=== PATIENT | male | born 1960 | race Caucasian/White ===

== ENCOUNTER 2020-09-12 13:24 | Inpatient (IN) | payer SELFPAY ==
[~2020-09-12] VITALS: Ht 175.3 cm; Wt 78.0 kg
--- NOTE | 2020-09-12 13:38 | NUR ---
pt now requesting something to drink. pt also mentioned that has allergy to keflex.
[2020-09-12] MEDS ORDERED: IV NORMAL SALINE 1000 ML BAG IV ONE (14:00)
[2020-09-12 14:11] LABS: HEMATOCRIT 40.1 % (36.7-47.1); MEAN CORPUSCULAR HEMOGLOBIN 30.5 uug (23.8-33.4); MEAN CORPUSCULAR VOLUME 92.2 fL (73.0-96.2); PLATELET COUNT (AUTO) 354 K/uL (152-348)
[2020-09-12 14:25] LABS: ETHANOL < 3 MG/DL (0-0)
[2020-09-12 14:36] LABS: CARBON DIOXIDE 27 mmol/L (21-32); CHLORIDE 105 mmol/L (98-107); CREATININE 0.8 mg/dL (0.6-1.3); GLUCOSE 140 mg/dL (74-106); POTASSIUM 3.9 mmol/L (3.5-5.1); UREA NITROGEN, BLOOD 18 mg/dL (7-18)
[2020-09-12 14:42] LABS: *BILIRUBIN,URIN 1+ (NEGATIVE); *BLOOD, URINE NEGATIVE (NEGATIVE); *CLARITY,URINE CLEAR (CLEAR); *COLOR,URINE DARK YELLOW (YELLOW); *KETONES,URINE NEGATIVE (NEGATIVE); LEUKOCYTE ESTERASE ,URINE NEGATIVE (NEGATIVE); NITRITE, URINE NEGATIVE (NEGATIVE); UGLUCOSE NEGATIVE (NEGATIVE)
--- NOTE | 2020-09-12 14:42 | NUR ---
PT IS IN ROOM #2B. DR BELLAMY EVALUATED THE PT.
[2020-09-12 14:46] LABS: *AMPHETAMINE, URINE NEGATIVE (NEGATIVE); *CANNABINOID, URINE NEGATIVE (NEGATIVE); *COCCAINE, URINE NEGATIVE (NEGATIVE); *OPIATE, URINE NEGATIVE (NEGATIVE); *PHENCYCLIDINE SCREEN,URINE NEGATIVE (NEGATIVE)
[2020-09-12 14:53] LABS: ACETAMINOPHEN < 2.0 ug/mL (10-30); ALANINE AMINOTRANSFERASE 20 U/L (16-63); ALKALINE PHOSPHATASE 91 U/L (50-136); ASPARTATE AMINOTRANSFERASE 16 U/L (15-37); BILIRUBIN,DIRECT 0.3 mg/dL (0.0-0.2); BILIRUBIN,TOTAL 1.2 mg/dL (0.2-1.0); TOTAL PROTEIN, SERUM 7.9 g/dL (6.4-8.2)
[2020-09-12 14:57] LABS: BACTERIA,URINE NONE SEEN /HPF (NONE SEEN); MUCUS,URINE MANY /LPF (0-FEW); RBC,URINE 0-3 /HPF (0-3); SQUAMOUS EPITHELIAL CELL,UR FEW /HPF (NONE SEEN); URINE AMORPHOUS URATE MODERATE /HPF; WBC,URINE 0-3 /HPF (0-3)
[2020-09-12 15:10] LABS: THYROID STIMULATING HORMONE 0.991 mIU/mL (0.358-3.740)
[2020-09-12] MEDS ORDERED: ONDANSETRON 4 MG/2 ML VIAL ONE ×2 (16:09→20:56)
[2020-09-12] MEDS ORDERED: HYDROMORPHONE 1 MG/1 ML DISP.SYRIN ONE (16:09)
[2020-09-12] MEDS ORDERED: ONDANSETRON 4 MG/2 ML VIAL IV ONE ×2 (17:00→20:45)
[2020-09-12] MEDS ORDERED: HYDROMORPHONE 1 MG/1 ML DISP.SYRIN IV ONE ×2 (17:00→20:45)
--- NOTE | 2020-09-12 19:15 | NUR ---
Report given by MELISSA Sheets. Pt. A&Ox1, vss. Will continue to monitor.
--- NOTE | 2020-09-12 20:15 | NUR ---
Pt. resting in bed watching television. Vss. Will continue to monitor.
[2020-09-12] MEDS ORDERED: HYDROMORPHONE 2 MG/1 ML DISP.SYRIN ONE (20:56)
--- NOTE | 2020-09-12 21:54 | NUR ---
Report given to MELISSA Boston.
[2020-09-12 22:00] VITALS: BP 148/69
[2020-09-12] MEDS ORDERED: ZOLPIDEM 5 MG TABLET PO PRN (22:15)
[2020-09-12] MEDS ORDERED: Z GUARD REMEDY PASTE 57 GM TUBE TOP PRN (22:15)
[2020-09-12] MEDS ORDERED: ACETAMINOPHEN 325 MG TABLET PO PRN (22:15)
[2020-09-12] MEDS ORDERED: ONDANSETRON 4 MG/2 ML VIAL IV PRN (22:15)
[2020-09-12] MEDS ORDERED: MAGNESIUM HYDROXIDE 30 ML LIQUID UDC PO PRN (22:15)
[2020-09-12] MEDS: IV 1/2NS 1000 ML 1,000 ML IV PRN (23:59)
[2020-09-13 04:18] VITALS: BP 118/67
--- NOTE | 2020-09-13 05:43 | NUR ---
received pt on the floor by lexi. Admitting dx right femur fx. Axox1, speech is not clear. VSS. No C/o pain,, asleep in bed. LFA IV intact and patent, started on .45NS @100ml /hr. belongings list completed. Physical assessment completed picture taken of ankle and back of the neck, some redness notices and placed in chart. Safety precautions maintained. Call light within reach. Will continue to monitor.
[2020-09-13] MEDS: PANTOPRAZOLE SODIUM 40 MG TABLET.DR PO SCH (06:44)
--- NOTE | 2020-09-13 07:30 | NUR ---
PATIENT REMAINS VERY CONFUSED AND UNCOOPERATIVE WITH CARE CLOSELY MONITORED FOR PAIN
[2020-09-13 07:47] LABS: MEAN CORPUSCULAR VOLUME 92.9 fL (73.0-96.2); PLATELET COUNT (AUTO) 279 K/uL (152-348)
[2020-09-13 08:03] LABS: CREATININE 0.7 mg/dL (0.6-1.3); MAGNESIUM 2.1 mg/dL (1.8-2.4); PHOSPHOROUS 2.2 mg/dL (2.5-4.9); POTASSIUM 4.2 mmol/L (3.5-5.1)
[2020-09-13 08:52] LABS: HEMATOCRIT 33.4 % (36.7-47.1)
--- NOTE | 2020-09-13 10:17 | NUR ---
seen by hospitalist edson advised to call for psych consult for paranoia, uncooperative
--- NOTE | 2020-09-13 10:20 | NUR ---
dr koo notified for psych eval/consult message left on answering
[2020-09-13 11:55] VITALS: BP 125/71
[2020-09-13] MEDS: MORPHINE SULFATE 2 MG/1 ML DISP.SYRIN IV PRN (13:05)
[2020-09-13] MEDS: IV 1/2NS 1000 ML 1,000 ML IV PRN ×2 (13:08→22:52)
--- NOTE | 2020-09-13 15:00 | NUR ---
SEEN BY DR PADILLA FOR ORTHO CONSULT SEE NOTES. DR PADILLA ALSO MADE AWARE OF PATIENT BEING CONFUSED AND NO NEXT OF KIN TO SIGN CONSENT.
[2020-09-13] MEDS ORDERED: NEUTRA PHOS PACKET PO ONE (15:30)
[2020-09-13 21:23] VITALS: BP 129/64
--- NOTE | 2020-09-13 22:59 | NUR ---
NOTED PATIENT TRYING TO REMOVED THE IVF,ADVISED PATIENT IVF IS NEEDED NOT TO REMOVED IT PATIENT IS CONFUSED . WRAPPED IVF SITE WITH KERLIX AND SECURE WITH TAPE .
--- NOTE | 2020-09-14 02:42 | NUR ---
PATIENT REMOVED IV -HEPLOCK ,PLACED A NE H/L PLACED NO .20 ON THE RIGHT FOREARM .
[2020-09-14] MEDS: MORPHINE SULFATE 2 MG/1 ML DISP.SYRIN IV PRN ×3 (03:02→20:08)
--- NOTE | 2020-09-14 03:02 | NUR ---
GIVEN PAIN MEDICATION VERBALIZED PAIN UNABLE TO DESCRIBED PAIN 5/10.
[2020-09-14] MEDS: PANTOPRAZOLE SODIUM 40 MG TABLET.DR PO SCH (06:18)
[2020-09-14 07:36] LABS: HEMATOCRIT 34.5 % (36.7-47.1); PLATELET COUNT (AUTO) 312 K/uL (152-348)
[2020-09-14] MEDS: IV 1/2NS 1000 ML 1,000 ML IV PRN ×2 (07:45→20:07)
--- NOTE | 2020-09-14 08:00 | NUR ---
RESTING IN BED ANSWERS SIMPLE QUESTION APPROPRIATELY. SITTER PROVIDED FOR SAFETY.
[2020-09-14 08:05] LABS: CREATININE 0.7 mg/dL (0.6-1.3); MAGNESIUM 2.2 mg/dL (1.8-2.4)
[2020-09-14 11:56] VITALS: BP 135/79
--- NOTE | 2020-09-14 14:10 | NUR ---
CONTINUE WITH PAIN MANAGEMENT FOR PRE OP MANAGEMENT. PATIENT WILL UNDERGO IM NAILING RIGHT FEMUR IN AM AT [address] PADILLA, DR PADILLA WILL SIGN SURGICAL MILLI CONSENT
[2020-09-14 16:00] VITALS: BP 128/68
--- NOTE | 2020-09-14 19:30 | NUR ---
Received pt in bed, resting, verbally responsive but garbled. No signs of distress noted. IVF infusing well. Plan of care discussed with the pt. Call light within reach. Sitter at bedside for safety.
[2020-09-14 20:00] VITALS: BP 142/72
[2020-09-15 04:00] VITALS: BP 120/60
[2020-09-15 06:27] LABS: MEAN CORPUSCULAR HEMOGLOBIN 30.3 uug (23.8-33.4); MEAN CORPUSCULAR VOLUME 91.4 fL (73.0-96.2); PLATELET COUNT (AUTO) 342 K/uL (152-348)
[2020-09-15] MEDS: PANTOPRAZOLE SODIUM 40 MG TABLET.DR PO SCH (06:45)
[2020-09-15 06:52] LABS: CARBON DIOXIDE 29 mmol/L (21-32); CHLORIDE 101 mmol/L (98-107); CREATININE 0.6 mg/dL (0.6-1.3); GLUCOSE 104 mg/dL (74-106); MAGNESIUM 2.1 mg/dL (1.8-2.4); POTASSIUM 4.2 mmol/L (3.5-5.1); UREA NITROGEN, BLOOD 12 mg/dL (7-18)
--- NOTE | 2020-09-15 07:08 | NUR ---
No significant change in condition noted through the night. Pain medications administered as needed. IV access intact and patent. Pt on NPO status since midnight. will be picked up for surgery at 0725 per surgery staff. Will endorse to day shift nurse.
[2020-09-15] MEDS ORDERED: BUPIVACAINE 0.25% 30 ML VIAL ONE (07:28)
[2020-09-15] MEDS ORDERED: POLYMYXIN B SULFATE 500,000 UNITS VIAL ONE (07:28)
[2020-09-15] MEDS ORDERED: VANCOMYCIN 1000 MG VIAL ONE (07:28)
--- NOTE | 2020-09-15 07:30 | NUR ---
Received aware and responsive. No respiratory distress. No s/sx of pain. Patient is comfortable. Will continue to monitor.
--- NOTE | 2020-09-15 07:41 | NUR ---
Picked up by 2 surgery staff for scheduled IM nailing by Dr. Alexander.
[2020-09-15] MEDS ORDERED: CLINDAMYCIN PHOSPHATE 600 MG/4 ML VIAL ONE (08:02)
[2020-09-15] MEDS ORDERED: HYDROMORPHONE 2 MG/1 ML DISP.SYRIN ONE (08:02)
[2020-09-15] MEDS ORDERED: HYDROMORPHONE 1 MG/1 ML DISP.SYRIN ONE (10:17)
[2020-09-15 11:00] VITALS: BP 134/82
[2020-09-15] MEDS ORDERED: IV D5W-0.45% NS +20 KCL 1,000 ML IV ONE (11:04)
--- NOTE | 2020-09-15 11:19 | NUR ---
Reports received from MELISSA Krishnamurthy and MELISSA Parikh.
--- NOTE | 2020-09-15 11:19 | NUR ---
Patient back from surgery via gurney in no distress. Alert and oriented x2. On O2 lpm via nc tolerated. No sob noted. Iv hydration ongoing. Surgery site with chava and dressing intact, no bleeding but swelling noted, ice pack on. No bleeding noted. Patient is kept comfortable.
--- NOTE | 2020-09-15 11:30 | NUR ---
Unable to obtain reported meds d/t patient's mental status. Pharmacy aware.
[2020-09-15 16:00] VITALS: BP 122/70
--- NOTE | 2020-09-15 16:10 | NUR ---
Patient tolerating room air spo2 95%. No respiratory distress noted.
[2020-09-15] MEDS: CLINDAMYCIN PHOSPHATE IV 600 MG in IV DEXTROSE 5% 100 ML IV SCH (16:21)
--- NOTE | 2020-09-15 18:54 | NUR ---
Patient is alert and responsive watching tv. In no acute distress. On iv atb no adverse reaction noted. Iv hydration ongoing. Patient has episodes of pulling and biting on iv site. Patient is reoriented. Sitter at bedside. S/p IM nailing. Dressings remain dry and intact. No bleeding noted. Patient needs attended. Safety and fall precautions maintained.
[2020-09-15 20:00] VITALS: BP 133/62
[2020-09-15] MEDS: MORPHINE SULFATE 4 MG/1 ML DISP.SYRIN IV PRN (20:27)
--- NOTE | 2020-09-15 20:30 | NUR ---
RECEIVED PATIENT AWAKE IN BED WITH SITTER AT BEDSIDE. PATIENT IS ALERT TO SELF ONLY, VERY CONFUSED AND DISORIENTED. NEEDS FREQUENT REDIRECTION. DRESSING NOTED TO RIGHT HIP/THIGH, CLEAN, DRY AND INTACT. WHEN ASKED IF IN PAIN, PATIENT STATED, "YES." PATIENT GIVEN MORPHINE 2MG IV PRN PER RN. VS WNL. IVF INFUSING WELL TO RIGHT FA. BED ALARM ON. CALL LIGHT IN REACH. ALL NEEDS ATTENDED. WILL CONTINUE TO MONITOR AND ASSESS .
[2020-09-15] MEDS ORDERED: HALOPERIDOL LACTATE 5 MG/1 ML VIAL IM ONE (21:00)
--- NOTE | 2020-09-15 21:15 | NUR ---
PATIENT AWAKE IN BED, TRYING TO PULL OUT IV AND REMOVE DRESSINGS. WHEN APPROACHED, PATIENT BECOMES AGITATED AND AGGRESSIVE WITH SITTER/STAFF. CALLED OUT TO DR. MORGAN FOR FURTHER ORDERS AND RECEIVED ONE TIME ORDER FOR HALDOL 10MG IM. SITTER AT BEDSIDE. VSS. BED ALARM ON. ALL NEEDS ATTENDED.
[2020-09-15] MEDS: POTASSIUM CHLORIDE 20 MEQ in IV D5 1/2 NS 1000 ML 1,000 ML IV PRN (21:38)
--- NOTE | 2020-09-15 23:00 | NUR ---
DR. GARCIA AT BEDSIDE TO SEE PATIENT. INFORMED MD THAT RECEIVED IM HALDOL FOR SEVERE AGITATION. MD STATED TO START HALDOL SCHEDULED PO IN AM. ALL NEEDS ATTENDED. WILL CONTINUE TO MONITOR AND ASSESS.
[2020-09-15] MEDS: HALOPERIDOL 5 MG TABLET PO SCH (23:30)
[2020-09-15] MEDS ORDERED: HALOPERIDOL LACTATE 5 MG/1 ML VIAL IM PRN (23:30)
[2020-09-16] MEDS: CLINDAMYCIN PHOSPHATE IV 600 MG in IV DEXTROSE 5% 100 ML IV SCH (01:18)
[2020-09-16 04:00] VITALS: BP 130/66
--- NOTE | 2020-09-16 05:44 | NUR ---
PATIENT AWAKE IN BED. RESTLESS. ALERT TO SELF. CONFUSED. SITTER AT BEDSIDE. CALL LIGHT IN REACH. ALL NEEDS ATTENDED. WILL CONTINUE TO MONITOR AND ASSESS.
[2020-09-16] MEDS: PANTOPRAZOLE SODIUM 40 MG TABLET.DR PO SCH (06:06)
[2020-09-16 06:47] LABS: HEMATOCRIT 31.5 % (36.7-47.1); MEAN CORPUSCULAR HEMOGLOBIN 30.9 uug (23.8-33.4); MEAN CORPUSCULAR VOLUME 92.1 fL (73.0-96.2); PLATELET COUNT (AUTO) 364 K/uL (152-348)
[2020-09-16 07:15] LABS: CREATININE 0.7 mg/dL (0.6-1.3); POTASSIUM 4.5 mmol/L (3.5-5.1)
--- NOTE | 2020-09-16 07:30 | NUR ---
Received patient awake and responsive, alert to self only, very confused and disoriented, mumbling to himself. Reoriented and redirection given but patient not responsive and continues to mumble. No respiratory distress. No s/sx of pain. Iv on rfa intact and connected to hydration tolerated. Dressing on right thigh and hip intact, dry and intact. Sitter at bedside. Bed is low and locked. Safety and fall measures maintained. Kept comfortable.
[2020-09-16] MEDS: HALOPERIDOL 5 MG TABLET PO SCH ×3 (08:28→17:08)
[2020-09-16] MEDS: BENZTROPINE MESYLATE 1 MG TABLET PO SCH ×3 (08:28→17:08)
[2020-09-16] MEDS: HYDROCODONE/APAP 10-325 MG TABLET PO PRN ×2 (08:34→17:26)
[2020-09-16] MEDS: POTASSIUM CHLORIDE 20 MEQ in IV D5 1/2 NS 1000 ML 1,000 ML IV PRN (10:57)
[2020-09-16 12:00] VITALS: BP 108/63
[2020-09-16 16:12] VITALS: BP 100/56
--- NOTE | 2020-09-16 19:00 | NUR ---
PATIENT ASLEEP BUT AROUSABLE, NO S/S OF PAIN AT THIS TIME, NO BEHAVIORAL PROBLEM NOTED, CONT 1;1 SITTER FOR SAFETY, CALL LIGHT WITHIN REACH.
--- NOTE | 2020-09-16 19:08 | NUR ---
Patient aware and responsive still very confused and disoriented garbles to himself. Frequent redirection and reorientation done. Sitter remains at bedside. Due meds given and tolerated. No acute distress. Iv hydration ongoing and tolerated. Dressing on right thigh and hip intact and dry. Bed is low and locked. Needs attended. Safety and fall measures maintained. Endorsed to next shift.
[2020-09-16 19:50] VITALS: BP 108/57
--- NOTE | 2020-09-16 22:30 | NUR ---
PATIENT ALERT AWAKE COMPLAIN OF R LEG, 9/10, AND NOTED WITH RESTLESSNESS. PATIENT GIVEN MORPHINE IV FOR PAIN AND COMFORT. PATIENT CONTINUE ON 1;1 SITTER FOR SAFETY, R HIP R THIGH DRESSING INTACT, CONT TO MONITOR.
[2020-09-16] MEDS: MORPHINE SULFATE 4 MG/1 ML DISP.SYRIN IV PRN (22:31)
[2020-09-17] MEDS: POTASSIUM CHLORIDE 20 MEQ in IV D5 1/2 NS 1000 ML 1,000 ML IV PRN ×2 (00:08→13:50)
[2020-09-17 05:42] VITALS: BP 120/64
--- NOTE | 2020-09-17 06:18 | NUR ---
PATIENT ASLEEP BUT EASILY AROUSABLE, NO COMPLAIN OF PAIN AT THIS TIME, PATIENT COOPERATIVE WITH CARE AT THIS TIME, NO BEHAVIORAL PROBLEM NOTED, CONT TO MONITOR, CONT 1;1 SITTER.
[2020-09-17 06:20] LABS: HEMATOCRIT 30.3 % (36.7-47.1); MEAN CORPUSCULAR HEMOGLOBIN 30.5 uug (23.8-33.4); MEAN CORPUSCULAR VOLUME 91.7 fL (73.0-96.2); PLATELET COUNT (AUTO) 368 K/uL (152-348)
[2020-09-17] MEDS: PANTOPRAZOLE SODIUM 40 MG TABLET.DR PO SCH (06:30)
[2020-09-17 06:34] LABS: CREATININE 0.7 mg/dL (0.6-1.3); POTASSIUM 4.4 mmol/L (3.5-5.1)
[2020-09-17] MEDS: MORPHINE SULFATE 4 MG/1 ML DISP.SYRIN IV PRN (07:43)
[2020-09-17] MEDS ORDERED: KETOROLAC TROMETHAMINE 30 MG INJ IM ONE (07:50)
[2020-09-17] MEDS ORDERED: ONDANSETRON 4 MG/2 ML VIAL IV ONE (07:50)
[2020-09-17] MEDS ORDERED: SEVOFLURANE 250 ML BOTTLE IH ONE (07:50)
[2020-09-17] MEDS ORDERED: IV NORMAL SALINE 1000 ML BAG IV ONE (07:50)
[2020-09-17] MEDS ORDERED: DEXAMETHASONE SOD PHOSPHATE 4 MG INJ IV ONE (07:50)
[2020-09-17] MEDS ORDERED: PROPOFOL 200 MG/20 ML BOTTLE IV ONE (07:50)
[2020-09-17] MEDS ORDERED: LIDOCAINE-MPF 2% 5 ML VIAL IJ ONE (07:50)
--- NOTE | 2020-09-17 08:00 | NUR ---
awake, alert, oriented to self only, very minimal understanding of plan of care, calm at this time but c/o of severe right hip pain- medicated as ordered, sitter at bedside, right hip dsg dry and intact, safety measures maintained
[2020-09-17] MEDS: HALOPERIDOL 5 MG TABLET PO SCH ×3 (08:31→17:07)
[2020-09-17] MEDS: BENZTROPINE MESYLATE 1 MG TABLET PO SCH ×3 (08:31→17:06)
[2020-09-17] MEDS ORDERED: HALO5TAB12 PO (08:47)
[2020-09-17] MEDS ORDERED: BENZ1TAB7 PO (08:47)
[2020-09-17 10:18] VITALS: BP 120/73
[2020-09-17] MEDS: HYDROCODONE/APAP 10-325 MG TABLET PO PRN (11:58)
[2020-09-17 12:13] VITALS: BP 124/70
--- NOTE | 2020-09-17 14:44 | NUR ---
restless and agitated and confused, medicated for pain
--- NOTE | 2020-09-17 14:45 | NUR ---
more relaxed now, sitter in the room
[2020-09-17 16:00] VITALS: BP 119/68
--- NOTE | 2020-09-17 16:36 | NUR ---
Assistant Coach consultation requested today, for possible homelessness. This PILOT INSTRUCTOR attempted to meet with the patient, however patient was not able to engage in much dialogue, and therefore this PILOT INSTRUCTOR was unable to gather informatio. This PILOT INSTRUCTOR to follow-up with patient again.
--- NOTE | 2020-09-17 18:00 | NUR ---
no distress noted, sitter in the room, safety measures in place
[2020-09-17 21:36] VITALS: BP 128/69
--- NOTE | 2020-09-17 22:00 | NUR ---
Patient received in bed, awake and responsive but confused and disoriented, l:l sitter in the room, safety measure and kept comfortable, will continue to monitor.
[2020-09-18] MEDS: POTASSIUM CHLORIDE 20 MEQ in IV D5 1/2 NS 1000 ML 1,000 ML IV PRN (01:03)
[2020-09-18] MEDS: MORPHINE SULFATE 4 MG/1 ML DISP.SYRIN IV PRN ×2 (03:11→08:54)
[2020-09-18 04:21] VITALS: BP 134/67
[2020-09-18] MEDS: PANTOPRAZOLE SODIUM 40 MG TABLET.DR PO SCH (06:05)
[2020-09-18] MEDS: BENZTROPINE MESYLATE 1 MG TABLET PO SCH ×2 (08:35→12:11)
[2020-09-18] MEDS: HALOPERIDOL 5 MG TABLET PO SCH ×2 (08:35→12:11)
[2020-09-18] MEDS ORDERED: ASPI-612 PO (09:42)
[2020-09-18] MEDS: HYDROCODONE/APAP 10-325 MG TABLET PO PRN (14:04)
--- NOTE | 2020-09-18 14:30 | NUR ---
Manager Personnel Selection Consultation: Manager Personnel Selection consultation requested for possible homelessness. This COMMERCIAL HVAC SERVICE TECHNICIAN follow-up with the patient today, as patient was not interviewable during this LCSWs attempt to meet with him. Patient is a 60 year old male. Per ED physicians notes, patient was found by EMS lying face up on the street. Per ED physicians notes, EMS reported that they were called out for a complaint of right hip pain, and that they found the patient incoherent and unable to provide information. When this COMMERCIAL HVAC SERVICE TECHNICIAN entered the patients room, patient was awake, responded to this LCSWs greeting. Patient observed to be fidgety in bed, and his speech was at times incoherent. This COMMERCIAL HVAC SERVICE TECHNICIAN attempted to complete a psychosocial assessment, but patient was not very cooperative with providing information. When asked about his living situation, patient stated I live in [place]..I am not homeless. Discharge plans were discussed, and patient was reminded that arrangements have been made for the patient to be discharged to a board and care located at [address] [place] [address]. Per case management notes, patient had agreed to this DC plan, however during this interview, patient stated I dont want to go there! This COMMERCIAL HVAC SERVICE TECHNICIAN explored patients discharge plans and also offered additional community resources, but patient was not able to provide this COMMERCIAL HVAC SERVICE TECHNICIAN with a discharge plan and stated I dont want resources..I dont want to talk to you!. Patients tone of voice was pressured, loud, at times incoherent and with disorganized thoughts. Patient observed to be agitated. This COMMERCIAL HVAC SERVICE TECHNICIAN ended this interview. This COMMERCIAL HVAC SERVICE TECHNICIAN was unable to complete a thorough MSE due to patients disorganized thoughts. Per psychiatry consultation notes patient presented disorganized, disoriented, rambling about unrelated things, not making any sense. Per nursing report, patient has been agitated, confused, impulsive, unpredictable. Patient has a 1:1 sitter for his behavior, and patient has been started on medications ordered by psychiatrist. blending line attendant Ponely and ALLY Nicolas informed of above. Manager Personnel Selection will continue to remain available to assist with a safe and proper discharge for the patient.
--- NOTE | 2020-09-18 15:07 | NUR ---
Discharged patient to Board [facility]. Patient awake, AOx1-2. Vital signs WNL. On room air. No signs of acute distress. Discharge documents sent to board and care via ambulance crew. Right hip dressing clean. Medication prescription in discharge packet sent to board and care via ambulance crew. Belongings accounted for. IV access removed. ID armband removed. Patient left unit via ambulance [facility].
== END 2020-09-18 15:00 | DRG 481 ==
LOC: ER 13:24 → EDBD 13:24 → MEDSURG3 22:04
PROVIDERS: ADMIT Nurse Practitioner Family; ATTEND Nurse Practitioner Acute Care
PROC: 0QS606Z Reposition Right Upper Femur with Intramedullary Internal Fixation Device, Open Approach (ICD-10-PCS; principal; 2020-09-15)
DX: S72.141A Displaced intertrochanteric fracture of right femur, initial encounter for closed fracture (principal); J98.11 Atelectasis; S72.21XA Displaced subtrochanteric fracture of right femur, initial encounter for closed fracture; W19.XXXA Unspecified fall, initial encounter; D72.829 Elevated white blood cell count, unspecified; F29 Unspecified psychosis not due to a substance or known physiological condition; Z20.822 Contact with and (suspected) exposure to COVID-19; Z59.0 Homelessness; Z88.1 Allergy status to other antibiotic agents; D64.9 Anemia, unspecified; D47.3 Essential (hemorrhagic) thrombocythemia; E80.6 Other disorders of bilirubin metabolism; R73.9 Hyperglycemia, unspecified; Y93.9 Activity, unspecified; Y92.89 Other specified places as the place of occurrence of the external cause
CPT/HCPCS: 36415; 70030-TC; 70450; 71045; 73502; 73503; 83605; 83735; 84100; 84443; 85025; 85730; 87040; 87086; 93005; 97161; A4649; A4663; C1713; G0378; G0480; J1100; J1170; J1630; J1885; J2270; J2405; J3370; J3480; J3490; J7030; J7060